=== PATIENT | male | born 1960 | race Caucasian/White ===

== ENCOUNTER 2022-05-10 23:54 | Emergency (ER) | payer OTHER ==
[~2022-05-10] VITALS: Ht 177.8 cm; Wt 102.1 kg
[2022-05-11 00:06] VITALS: BP 144/76
[2022-05-11 00:10] VITALS: BP 144/76
--- NOTE | 2022-05-11 01:22 | NUR ---
Blood for labwork drawn by brine tank operator. Patient tolerated well.
[2022-05-11 01:28] LABS: BASOPHILS % (AUTO) 0.3 % (0.0-2.0); EOSINOPHILS % (AUTO) 0.5 % (0.0-4.0); HEMATOCRIT 45.9 % (36-52); HEMOGLOBIN 16.1 g/dL (12.0-18.0); LYMPHOCYTES # (AUTO) 0.5 K/uL (2.0-11.5); MEAN CORPUSCULAR HEMOGLOBIN 33 pg (27-31); MEAN CORPUSCULAR HGB CONC 35 g/dL (33-37); MEAN CORPUSCULAR VOLUME 93.1 fL (80-94); MONOCYTES # (AUTO) 0.3 K/uL (0.8-1.0); MONOCYTES % (AUTO) 5.2 % (1.7-9.3); NEUTROPHILS # (AUTO) 5.5 K/uL (1.8-7.7); PLATELET COUNT (AUTO) 77 K/uL (140-450); RED BLOOD CELL COUNT(AUTO) 4.93 MIL/uL (4.20-6.10); RED CELL DISTRIBUTION WIDTH 13.7 % (11.6-13.7); WHITE BLOOD COUNT (AUTO) 6.4 K/uL (4.8-10.8)
--- NOTE | 2022-05-11 01:36 | NUR ---
Patient taken to CT scan via WC
[2022-05-11 01:45] LABS: ALBUMIN 4.1 g/dL (3.4-5.0); ANION GAP 10.5 (8-16); CARBON DIOXIDE 28.1 mmol/L (21-32); CREATININE 0.9 mg/dL (0.6-1.3); POTASSIUM 3.6 mmol/L (3.5-5.1)
--- NOTE | 2022-05-11 02:10 | NUR ---
Patient taken to bed 5.
[2022-05-11 02:18] LABS: APPEARANCE,URINE CLEAR (CLEAR); BILIRUBIN,URINE NEGATIVE (NEGATIVE); BLOOD, URINE 3+ (NEGATIVE); COLOR,URINE YELLOW (YELLOW); LEUKOCYTE ESTERASE ,URINE NEGATIVE (NEGATIVE); NITRITE, URINE NEGATIVE (NEGATIVE); UGLUCOSE NEGATIVE (NEGATIVE)
[2022-05-11 02:27] LABS: RBC,URINE TOO NUMEROUS TO COUN /HPF (0-5); WBC,URINE 0-5 /HPF (0-5)
[2022-05-11] MEDS ORDERED: HYDROcodone/APAP 5/325 MG 1 TAB TAB PO ONE (02:45)
[2022-05-11] MEDS ORDERED: BEN10 PO (02:46)
[2022-05-11] MEDS ORDERED: ACET-8905 PO (02:46)
--- NOTE | 2022-05-11 02:56 | NUR ---
Dr. Lebron examining patient.
--- NOTE | 2022-05-11 03:05 | NUR ---
Patient discharged with v/s stable. Written and verbal after care instructions given and explained. Patient verbalized understanding. Ambulatory with steady gait. All questions addressed prior to discharge. Advised to follow up with PMD.
== END 2022-05-11 03:05 | disposition home or self-care (01) ==
LOC: MED 23:54
DX: K57.90 Diverticulosis of intestine, part unspecified, without perforation or abscess without bleeding (principal); K74.60 Unspecified cirrhosis of liver; R31.29 Other microscopic hematuria; F17.210 Nicotine dependence, cigarettes, uncomplicated; Z79.899 Other long term (current) drug therapy; Z98.890 Other specified postprocedural states
CPT/HCPCS: 36415; 80053; 81001; 83690; 85025; 99284